=== PATIENT | male | born 1950 | race Caucasian/White ===

== ENCOUNTER 2021-01-17 17:24 | Observation (INO) ==
[2021-01-17] MEDS ORDERED: D5% in Water 1,000 ML IVC PRN (18:50)
[2021-01-17] MEDS ORDERED: Dextrose Gel 15 GM/37.5 ML TUBE PO PRN ×2 (18:50)
[2021-01-17] MEDS ORDERED: *HR* Dextrose 50 % in Water (Vial) 50 ML VIAL IVP PRN (18:50)
[2021-01-17] MEDS: Insulin LISPRO 300 UNITS/3 ML VIAL SUBQ SCH ×2 (18:59→20:31)
[2021-01-17] MEDS ORDERED: Naloxone 0.4 MG/ML INJ IVP PRN (19:08)
[2021-01-17] MEDS ORDERED: Ondansetron 4 MG/2 ML VIAL IVP PRN (19:08)
[2021-01-17 19:47] LABS: Hematocrit 39.7 % (37.5-50.1); Hemoglobin 13.3 g/dL (12.9-16.9); Mean Corpuscular HGB Conc 33.5 g/dL (31.6-35.5); Mean Corpuscular Hemoglobin 29.3 pg (28.0-33.3); Mean Corpuscular Volume 87.4 fL (83.0-100.0); Mean Platelet Volume 9.7 fL (9.4-12.4); Monocytes # 0.6 K/mcL (0.0-1.3); Platelet Count 180 K/mcL (140-400); Red Blood Count 4.54 M/mcL (4.19-5.50); Red Cell Distribution Width 14.6 % (11.5-14.5); White Blood Count 7.5 K/mcL (4.3-11.1)
[2021-01-17 19:50] LABS: VBG HCO3 26 mEq/L (21-27); VBG PCO2 42 mmHg (41-51); VBG PO2 41 mmHg (25-50)
[2021-01-17] MEDS: Metoclopramide 10 MG/2 ML VIAL IVP PRN (19:58)
[2021-01-17] MEDS: 0.9 % Sodium Chloride 1,000 ML IVC SCH (19:58)
[2021-01-17 20:08] LABS: Calcium 9.2 mg/dL (8.6-10.3); Potassium 3.7 mEq/L (3.5-5.1)
[2021-01-17 20:19] LABS: Lymphocytes # 0.3 K/mcL (0.6-4.6); Neutrophils # 6.6 K/mcL (1.6-8.9)
[2021-01-17 20:20] LABS: Large Platelets Present (Not Present); Platelet Estimate Normal (Normal)
[2021-01-17] MEDS: Insulin DETEMIR 100 UNIT/ML X5UNITS SUBQ SCH (21:45)
[2021-01-18] MEDS: ceFAZolin 1,000 MG in Water for inj. (sterile) 10 ML IVP SCH ×3 (00:15→15:29)
[2021-01-18 02:43] LABS: Basophils % 0.5 %; Eosinophils # 0.1 K/mcL (0.0-0.6); Eosinophils % 1.8 %; Hematocrit 38.4 % (37.5-50.1); Immature Granulocytes % 1.1 % (0-4); Lymphocytes # 0.7 K/mcL (0.6-4.6); Lymphocytes % 9.8 %; Mean Corpuscular HGB Conc 33.9 g/dL (31.6-35.5); Mean Corpuscular Hemoglobin 29.3 pg (28.0-33.3); Mean Corpuscular Volume 86.7 fL (83.0-100.0); Mean Platelet Volume 9.9 fL (9.4-12.4); Monocytes # 0.8 K/mcL (0.0-1.3); Monocytes % 11.6 %; Platelet Count 145 K/mcL (140-400); Red Blood Count 4.43 M/mcL (4.19-5.50); Red Cell Distribution Width 14.6 % (11.5-14.5); Segmented Neutrophils % 75.2 %; White Blood Count 6.6 K/mcL (4.3-11.1)
[2021-01-18] MEDS ORDERED: *HR* Heparin 5,000 UNIT/ML VIAL SQ SCH (06:00)
[2021-01-18] MEDS: Gabapentin 300 MG CAPSULE PO SCH ×3 (07:50→21:48)
[2021-01-18] MEDS: Sucralfate 1 GM TABLET PO SCH ×4 (07:50→21:48)
[2021-01-18] MEDS: Isosorbide MONOnitrate (24 HR) 30 MG TAB.ER.24H PO SCH (07:50)
[2021-01-18] MEDS: Aspirin Enteric Coated 81 MG Tablet PO SCH (07:52)
[2021-01-18] MEDS: amLODIPine 5 MG TABLET PO SCH (07:52)
[2021-01-18] MEDS: allopurinoL 300 MG TABLET PO SCH (07:52)
[2021-01-18] MEDS: Cholecalciferol (D-3) 1,000 UNIT (25MCG) TABLET PO SCH (07:52)
[2021-01-18] MEDS: BuPROPion XL (24 HR) 150 MG TABLET PO SCH (07:52)
[2021-01-18] MEDS: Apixaban 5 MG TABLET PO SCH ×2 (07:52→21:48)
[2021-01-18] MEDS: Pantoprazole 40 MG VIAL IVP SCH (07:53)
[2021-01-18] MEDS: Insulin LISPRO 300 UNITS/3 ML VIAL SUBQ SCH ×7 (08:07→21:38)
[2021-01-18 08:08] LABS: Potassium 3.2 mEq/L (3.5-5.1)
[2021-01-18] MEDS: (Miconazole Nitrate [Desenex] 43 GM Powder) TP SCH ×2 (08:17→21:47)
[2021-01-18] MEDS: Insulin DETEMIR 100 UNIT/ML X5UNITS SUBQ SCH ×2 (08:20→21:49)
[2021-01-18] MEDS ORDERED: Cyanocobalamin (B-12) 1,000 MCG TABLET PO SCH (09:00)
[2021-01-18] MEDS: 0.9 % Sodium Chloride 1,000 ML IVC SCH (10:04)
[2021-01-18 12:14] LABS: Estimated Average Glucose 286 mg/dl; Hemoglobin A1C 11.6 %
[2021-01-18] MEDS ORDERED: Sennosides/Docusate Sodium TABLET PO SCH (21:00)
[2021-01-18] MEDS: Famotidine 20 MG TABLET PO SCH (21:49)
[2021-01-19] MEDS: ceFAZolin 1,000 MG in Water for inj. (sterile) 10 ML IVP SCH ×2 (00:18→08:36)
[2021-01-19] MEDS: Aspirin Enteric Coated 81 MG Tablet PO SCH (08:31)
[2021-01-19] MEDS: Apixaban 5 MG TABLET PO SCH (08:31)
[2021-01-19] MEDS: BuPROPion XL (24 HR) 150 MG TABLET PO SCH (08:32)
[2021-01-19] MEDS: Sucralfate 1 GM TABLET PO SCH ×2 (08:32→12:47)
[2021-01-19] MEDS: Gabapentin 300 MG CAPSULE PO SCH ×2 (08:32→15:04)
[2021-01-19] MEDS: Cholecalciferol (D-3) 1,000 UNIT (25MCG) TABLET PO SCH (08:32)
[2021-01-19] MEDS: allopurinoL 300 MG TABLET PO SCH (08:32)
[2021-01-19] MEDS: Isosorbide MONOnitrate (24 HR) 30 MG TAB.ER.24H PO SCH (08:33)
[2021-01-19] MEDS: Pantoprazole 40 MG VIAL IVP SCH (08:34)
[2021-01-19] MEDS: amLODIPine 5 MG TABLET PO SCH (08:34)
[2021-01-19] MEDS: Famotidine 20 MG TABLET PO SCH (08:34)
[2021-01-19] MEDS: Insulin LISPRO 300 UNITS/3 ML VIAL SUBQ SCH ×4 (08:43→12:40)
[2021-01-19] MEDS: Insulin DETEMIR 100 UNIT/ML X5UNITS SUBQ SCH (09:30)
[2021-01-19 10:16] VITALS: BP 138/83
[2021-01-19] MEDS: (Miconazole Nitrate [Desenex] 43 GM Powder) TP SCH (12:41)
[2021-01-19] MEDS: Metoclopramide 10 MG/2 ML VIAL IVP PRN (12:47)
== END 2021-01-19 15:32 | disposition home or self-care (01) ==
LOC: 3NENU → SUATTDRO 18:18
PROVIDERS: ADMIT Family Medicine; ATTEND Internal Medicine